=== PATIENT | male | born 1975 | race Hispanic/Latino ===

== ENCOUNTER 2017-09-14 20:45 | Emergency (ER) | payer OTHER ==
[~2017-09-14 20:45] MED LIST: ASPI-1197 PO
== END 2017-09-14 22:04 | disposition home or self-care (01) ==
LOC: EDH 20:45
DX: S90.111A Contusion of right great toe without damage to nail, initial encounter (principal); E11.9 Type 2 diabetes mellitus without complications; I10 Essential (primary) hypertension; Z79.4 Long term (current) use of insulin; W20.8XXA Other cause of strike by thrown, projected or falling object, initial encounter; Y93.89 Activity, other specified; Y92.89 Other specified places as the place of occurrence of the external cause; Y99.8 Other external cause status
CPT/HCPCS: 73660

== ENCOUNTER 2017-12-02 16:16 | Emergency (ER) | payer OTHER ==
[2017-12-02] MEDS ORDERED: ASPIRIN 325 MG TABLET ONE (16:34)
[2017-12-02 16:38] LABS: BASOPHILS % (AUTO) 0.6 % (0.0-5.0); EOSINOPHILS % (AUTO) 0.8 % (0.0-8.0); HEMATOCRIT 44.6 % (42-54); LYMPHOCYTES % (AUTO) 31.6 % (21.0-51.0); MEAN CORPUSCULAR HGB CONC 35.6 g/dL (32.0-36.0); MEAN CORPUSCULAR VOLUME 89.7 fL (79-99); MONOCYTES % (AUTO) 5.2 % (3.0-13.0); NEUTROPHILS % (AUTO) 61.8 % (40.0-77.0); PLATELET COUNT (AUTO) 280 K/uL (130-400); RED BLOOD CELL COUNT(AUTO) 4.97 MIL/uL (4.50-6.20); RED CELL DISTRIBUTION WIDTH 12.8 % (11.0-15.5)
[2017-12-02 17:01] LABS: AMPHET/METH SCREEN,URINE NEGATIVE (NEGATIVE); BARBITURATE SCREEN, URINE NEGATIVE (NEGATIVE); BENZODIAZEPINES SCREEN,URINE NEGATIVE (NEGATIVE); CANNABINOID SCREEN,URINE NEGATIVE (NEGATIVE); COCAINE SCREEN,URINE NEGATIVE (NEGATIVE); OPIATE SCREEN,URINE NEGATIVE (NEGATIVE); PHENCYCLIDINE SCREEN,URINE NEGATIVE (NEGATIVE)
[2017-12-02 17:06] LABS: INR 0.93 (0.85-1.15); PARTIAL THROMBOPLASTIN TIME 25.6 SEC (26.3-35.5); PROTHROMBIN TIME 9.8 SEC (9.6-11.6)
[2017-12-02 17:21] LABS: B-TYPE NATRIURETIC PEPTIDE < 5 pg/mL (0-100)
[2017-12-02 17:23] LABS: ALBUMIN 3.5 g/dL (3.5-5.0); BILIRUBIN,TOTAL 0.6 mg/dL (0.2-1.0); CREATININE 1.2 mg/dL (0.5-1.5); POTASSIUM 4.1 mmol/L (3.5-5.1); TOTAL PROTEIN, SERUM 7.8 g/dL (6.0-8.3)
[2017-12-02] MEDS ORDERED: INSULIN HUMULIN R 100 UNIT/ML 3ML ONE (18:02)
== END 2017-12-02 19:26 | disposition home or self-care (01) ==
LOC: EDH 16:16
DX: R07.89 Other chest pain (principal); E11.65 Type 2 diabetes mellitus with hyperglycemia; F20.9 Schizophrenia, unspecified; I10 Essential (primary) hypertension; Z79.4 Long term (current) use of insulin
CPT/HCPCS: 36415; 71045; 80053; 80305; 82550; 82948; 83880; 84484; 85025; 85610; 85730; 93005; 94761; 96361; 96374; 99285; J1815

== ENCOUNTER 2018-04-30 22:24 | Emergency (ER) | payer OTHER ==
[2018-04-30] MEDS ORDERED: CEFTRIAXONE SODIUM 1 GM ONE (23:02)
[2018-04-30] MEDS ORDERED: LIDOCAINE HCL MPF 1% 5ML VIAL ONE (23:02)
[2018-04-30] MEDS ORDERED: TETANUS/DIPHTHERIA TOXOID [ADULT] 0.5 ML VIAL IM ONE (23:03)
== END 2018-04-30 23:34 | disposition home or self-care (01) ==
LOC: EDH 22:24
DX: S61.236A Puncture wound without foreign body of right little finger without damage to nail, initial encounter (principal); I10 Essential (primary) hypertension; E11.9 Type 2 diabetes mellitus without complications; F31.9 Bipolar disorder, unspecified; F20.9 Schizophrenia, unspecified; Z79.4 Long term (current) use of insulin; W45.8XXA Other foreign body or object entering through skin, initial encounter; Y93.89 Activity, other specified; Y92.89 Other specified places as the place of occurrence of the external cause; Y99.8 Other external cause status
CPT/HCPCS: 73140; 90471; 90714; 99284; J0696; J3490

== ENCOUNTER 2018-08-30 21:24 | Emergency (ER) | payer OTHER | END 2018-08-30 23:23 | disposition home or self-care (01) | LOC: EDH 21:24 | DX: S40.021A Contusion of right upper arm, initial encounter (principal); E11.9 Type 2 diabetes mellitus without complications; I10 Essential (primary) hypertension; F20.9 Schizophrenia, unspecified; F31.9 Bipolar disorder, unspecified; W55.12XA Struck by horse, initial encounter; Y93.89 Activity, other specified; Y92.89 Other specified places as the place of occurrence of the external cause; Y99.8 Other external cause status | CPT/HCPCS: 99282 ==

== ENCOUNTER 2018-09-26 08:12 | Emergency (ER) | payer OTHER ==
[2018-09-26] MEDS ORDERED: CYCLOBENZAPRINE HCL 10 MG TABLET ONE (08:56)
[2018-09-26] MEDS ORDERED: KETOROLAC TROMETHAMINE 60 MG/2 ML VIAL ONE (08:56)
== END 2018-09-26 09:51 | disposition home or self-care (01) ==
LOC: EDH 08:12
DX: M54.30 Sciatica, unspecified side (principal); F31.9 Bipolar disorder, unspecified; E11.9 Type 2 diabetes mellitus without complications; I10 Essential (primary) hypertension; F20.9 Schizophrenia, unspecified; Z79.4 Long term (current) use of insulin; Z90.49 Acquired absence of other specified parts of digestive tract; Z87.891 Personal history of nicotine dependence
CPT/HCPCS: 72100; 96372; 99283; J1885

== ENCOUNTER 2019-03-08 22:07 | Emergency (ER) | payer OTHER ==
[2019-03-08 22:52] LABS: BASOPHILS % (AUTO) 0.9 % (0.0-5.0); EOSINOPHILS % (AUTO) 3.4 % (0.0-8.0); HEMATOCRIT 44.7 % (42-54); LYMPHOCYTES % (AUTO) 32.2 % (21.0-51.0); MEAN CORPUSCULAR HEMOGLOBIN 31.6 pg (27.0-33.0); MEAN CORPUSCULAR HGB CONC 35.4 g/dL (32.0-36.0); MEAN CORPUSCULAR VOLUME 89.4 fL (79-99); MONOCYTES % (AUTO) 6.8 % (3.0-13.0); NEUTROPHILS % (AUTO) 56.7 % (40.0-77.0); NUCLEATED RED BLOOD CELLS 0.1 % (0.0-0.19); PLATELET COUNT (AUTO) 268 K/uL (130-400); RED CELL DISTRIBUTION WIDTH 12.8 % (11.0-15.5); WHITE BLOOD COUNT (AUTO) 6.6 K/uL (4.8-10.8)
[2019-03-08 23:04] LABS: APPEARANCE,URINE Clear (CLEAR); BILIRUBIN,URINE Negative (NEGATIVE); COLOR,URINE Yellow (YELLOW); GLUCOSE, URINE (UA) >=1000 mg/dL (NEGATIVE); KETONES,URINE Negative (NEGATIVE); LEUKOCYTE ESTERASE ,URINE Negative (NEGATIVE); NITRATE,URINE Negative (NEGATIVE); OCCULT BLOOD,URINE Negative (NEGATIVE); PROTEIN,URINE Negative (NEGATIVE)
[2019-03-08 23:09] LABS: ALBUMIN 3.4 g/dL (3.5-5.0); BILIRUBIN,TOTAL 0.9 mg/dL (0.2-1.0); CREATININE 1.1 mg/dL (0.5-1.5); POTASSIUM 4.1 mmol/L (3.5-5.1); TOTAL PROTEIN, SERUM 7.7 g/dL (6.0-8.3)
[2019-03-08] MEDS ORDERED: SODIUM CHLORIDE 0.9% 1000ML 1,000 ML IV ONE (23:12)
[2019-03-08] MEDS ORDERED: KETOROLAC TROMETHAMINE 30MG/ML ONE (23:12)
[2019-03-09] MEDS ORDERED: LIDOCAINE 5% TOPICAL PATCH TP ONE (00:09)
[2019-03-09] MEDS ORDERED: ORPHENADRINE CITRATE 30 MG/ML ML ONE (00:09)
[2019-03-09] MEDS ORDERED: INSULIN HUMULIN R 100 UNIT/ML 3ML ONE (00:10)
[2019-03-09] MEDS ORDERED: SODIUM CHLORIDE 0.9% 1000ML 1,000 ML IV ONE (00:11)
== END 2019-03-09 00:48 | disposition home or self-care (01) ==
LOC: EDH 22:07
DX: S39.012A Strain of muscle, fascia and tendon of lower back, initial encounter (principal); M62.838 Other muscle spasm; R10.32 Left lower quadrant pain; E11.9 Type 2 diabetes mellitus without complications; I10 Essential (primary) hypertension; F20.9 Schizophrenia, unspecified; F31.9 Bipolar disorder, unspecified; Z90.49 Acquired absence of other specified parts of digestive tract; X58.XXXA Exposure to other specified factors, initial encounter; Y93.89 Activity, other specified; Y92.89 Other specified places as the place of occurrence of the external cause; Y99.8 Other external cause status
CPT/HCPCS: 36415; 74176; 80053; 81003; 83690; 85025; 96374; 96375; 99285; J1815; J1885; J2360; J7030 ×2

== ENCOUNTER → 2023-04-17 | Outpatient (CLI) | payer OTHER ==
[~2023-04-17] MED LIST changes: -ASPI-1197 PO; +CANA300T PO; +INSU100I22 SQ; +LIDOCAINE HCL 4% LTA SOL 4 ML VIAL TP ONE; +METF-444 PO; +ROSU20TA73 PO
== END | disposition home or self-care (01) ==
LOC: WHH 09:47
PROVIDERS: ATTEND Nurse Practitioner Family
DX: S91.202A Unspecified open wound of left great toe with damage to nail, initial encounter (principal); S92.402A Displaced unspecified fracture of left great toe, initial encounter for closed fracture; S97.112A Crushing injury of left great toe, initial encounter; E11.621 Type 2 diabetes mellitus with foot ulcer; L97.522 Non-pressure chronic ulcer of other part of left foot with fat layer exposed; E78.5 Hyperlipidemia, unspecified; I10 Essential (primary) hypertension; F31.9 Bipolar disorder, unspecified; Z79.84 Long term (current) use of oral hypoglycemic drugs; Z79.82 Long term (current) use of aspirin; Z79.899 Other long term (current) drug therapy; X58.XXXA Exposure to other specified factors, initial encounter; Y93.89 Activity, other specified; Y92.89 Other specified places as the place of occurrence of the external cause; Y99.8 Other external cause status
CPT/HCPCS: 11042; A6248; A4450

== ENCOUNTER 2023-06-17 19:36 | Emergency (ER) | payer OTHER ==
[~2023-06-17] VITALS: Ht 175.3 cm; Wt 79.4 kg
[~2023-06-17 19:36] MED LIST changes: -LIDOCAINE HCL 4% LTA SOL 4 ML VIAL TP ONE
[2023-06-17] MEDS ORDERED: KETOROLAC 15MG/ML VIAL (15MG/ML) IV ONE (21:30)
[2023-06-17] MEDS ORDERED: ONDANSETRON 4MG INJ IVP ONE (21:30)
[2023-06-17] MEDS ORDERED: ACETAMINOPHEN 325 MG TAB PO ONE (21:30)
[2023-06-17] MEDS ORDERED: 0.9%NACL 1000ML 1,000 ML IV ONE (21:30)
[2023-06-17 23:16] LABS: APPEARANCE,URINE CLEAR (CLEAR); BILIRUBIN,URINE NEGATIVE (NEGATIVE); COLOR,URINE YELLOW (YELLOW); GLUCOSE, URINE (UA) >=1000 mg/dL (NEGATIVE); KETONES,URINE NEGATIVE (NEGATIVE); LEUKOCYTE ESTERASE ,URINE NEGATIVE Leu/uL (NEGATIVE); NITRATE,URINE NEGATIVE (NEGATIVE); OCCULT BLOOD,URINE SMALL (NEGATIVE); PH,URINE 5.5 (5.0-8.0); PROTEIN,URINE 200 mg/dL (NEGATIVE); UROBILINOGEN,URINE 0.2 mg/dL (0.2-1.0)
[2023-06-17 23:19] LABS: ADD UA MICROSCOPIC YES
[2023-06-17 23:24] LABS: BASOPHILS # (AUTO) 0.04 K/uL (0.00-0.20); BASOPHILS % (AUTO) 0.6 % (0.0-5.0); EOSINOPHILS # (AUTO) 0.05 K/uL (0.00-0.70); EOSINOPHILS % (AUTO) 0.7 % (0.0-8.0); HEMATOCRIT 38.6 % (42-54); IMMATURE GRANULOCYTE ABSOLUTE 0.02 K/uL (0-1); LYMPHOCYTES % (AUTO) 27.2 % (21.0-51.0); MEAN CORPUSCULAR HEMOGLOBIN 30.2 pg (27.0-33.0); MEAN CORPUSCULAR HGB CONC 35.8 g/dL (32.0-36.0); MEAN CORPUSCULAR VOLUME 84.5 fL (79-99); MONOCYTES # (AUTO) 0.5 K/uL (0.1-1.0); MONOCYTES % (AUTO) 7.2 % (3.0-13.0); NEUTROPHILS # (AUTO) 4.6 K/uL (1.8-7.7); PLATELET COUNT (AUTO) 263 K/uL (130-400); RED BLOOD CELL COUNT(AUTO) 4.57 MIL/uL (4.50-6.20); RED CELL DISTRIBUTION WIDTH 12.3 % (11.0-15.5); WHITE BLOOD COUNT (AUTO) 7.2 K/uL (4.8-10.8)
[2023-06-17 23:29] LABS: MUCUS,URINE RARE LPF (None Seen); OTHER CASTS, URINE 6 /LPF (None Seen)
[2023-06-17 23:39] LABS: ALBUMIN 3.2 g/dL (3.5-5.0); CREATININE 1.5 mg/dL (0.5-1.5); POTASSIUM 3.9 mmol/L (3.5-5.1)
[2023-06-17 23:43] LABS: BILIRUBIN,TOTAL 0.9 mg/dL (0.2-1.0); TOTAL PROTEIN, SERUM 8.2 g/dL (6.0-8.3)
[2023-06-17] MEDS ORDERED: IOHEXOL 350 MG/ML 100ML INFUS..BTL IV ONE (23:48)
[2023-06-17 23:58] LABS: RAPID GROUP A STREP negative (NEGATIVE)
[2023-06-18] MEDS ORDERED: INSULIN HUMULIN R 100 UNIT/ML 3ML IV ONE
[2023-06-18 00:07] LABS: COVID19 (SARS ANTIGEN RAPID) PRESUMPTIVE NEGATIVE (NEGATIVE); INFLUENZA TYPE A Negative For Type A (NEGATIVE); INFLUENZA TYPE B Negative For Type B (NEGATIVE)
[2023-06-18] MEDS ORDERED: PANT40TA54 PO (01:15)
[2023-06-18] MEDS ORDERED: AMOX1TAB16 PO (01:15)
[2023-06-18] MEDS ORDERED: ONDA-104 PO (01:15)
[2023-06-18] MEDS ORDERED: ACET-66 PO (01:15)
[2023-06-18] MEDS ORDERED: DICY20TA2 PO (01:15)
[2023-06-18 01:38] VITALS: BP 127/84; PULSE 95; RESP 18; O2SAT 99
== END 2023-06-18 01:39 | disposition home or self-care (01) ==
LOC: EDH 19:36
DX: K52.9 Noninfective gastroenteritis and colitis, unspecified (principal); E86.0 Dehydration; E11.65 Type 2 diabetes mellitus with hyperglycemia; F20.9 Schizophrenia, unspecified; Z20.822 Contact with and (suspected) exposure to COVID-19
CPT/HCPCS: 99284; 74177; 96374; 96375 ×2; 87426; 80053; 83690; 85025; 87088; 87880; 87804 ×2; 82948; 81001; 36415; J7030; J2405; J1885; Q9967; J1815

== ENCOUNTER 2023-09-25 07:44 | Emergency (ER) | payer OTHER ==
[~2023-09-25] VITALS: Ht 170.2 cm; Wt 83.0 kg
[~2023-09-25 07:44] MED LIST changes: +ACET-66 PO; +AMOX1TAB16 PO; +DICY20TA2 PO; +ONDA-104 PO; +PANT40TA54 PO
[2023-09-25 07:46] VITALS: BP 125/75; PULSE 96; RESP 14; O2SAT 99
[2023-09-25] MEDS: HYDROCODONE/ACETAMINOPHEN 5/325 MG TAB PO ONE (08:28)
[2023-09-25] MEDS ORDERED: ACET-2079 PO (12:07)
== END 2023-09-25 12:21 | disposition home or self-care (01) ==
LOC: EDH 07:44
DX: S90.32XA Contusion of left foot, initial encounter (principal); E11.9 Type 2 diabetes mellitus without complications; F20.9 Schizophrenia, unspecified; Z79.899 Other long term (current) drug therapy; Z90.49 Acquired absence of other specified parts of digestive tract; F32.A Depression, unspecified; W55.12XA Struck by horse, initial encounter; Y93.89 Activity, other specified; Y92.89 Other specified places as the place of occurrence of the external cause; Y99.8 Other external cause status
CPT/HCPCS: 73630; 73700

== ENCOUNTER 2024-01-28 19:53 | Emergency (ER) | payer MEDICARE, OTHER ==
[~2024-01-28] VITALS: Ht 172.7 cm; Wt 83.5 kg
[~2024-01-28 19:53] MED LIST changes: +ACET-2079 PO
[2024-01-28 20:29] LABS: BASOPHILS # (AUTO) 0.02 K/uL (0.00-0.20); BASOPHILS % (AUTO) 0.3 % (0.0-5.0); EOSINOPHILS # (AUTO) 0.07 K/uL (0.00-0.70); EOSINOPHILS % (AUTO) 1.2 % (0.0-8.0); HEMATOCRIT 35.8 % (42-54); IMMATURE GRANULOCYTE ABSOLUTE 0.01 K/uL (0-1); LYMPHOCYTES # (AUTO) 1.9 K/uL (1.0-4.8); LYMPHOCYTES % (AUTO) 31.4 % (21.0-51.0); MEAN CORPUSCULAR HEMOGLOBIN 30.6 pg (27.0-33.0); MEAN CORPUSCULAR HGB CONC 36.6 g/dL (32.0-36.0); MEAN CORPUSCULAR VOLUME 83.6 fL (79-99); MONOCYTES # (AUTO) 0.5 K/uL (0.1-1.0); NEUTROPHILS # (AUTO) 3.5 K/uL (1.8-7.7); NEUTROPHILS % (AUTO) 58.9 % (40.0-77.0); PLATELET COUNT (AUTO) 240 K/uL (130-400); RED BLOOD CELL COUNT(AUTO) 4.28 MIL/uL (4.50-6.20); RED CELL DISTRIBUTION WIDTH 12.4 % (11.0-15.5); WHITE BLOOD COUNT (AUTO) 5.9 K/uL (4.8-10.8)
[2024-01-28 20:41] LABS: CREATININE 1.1 mg/dL (0.5-1.3)
[2024-01-28 20:46] LABS: ALBUMIN 3.1 g/dL (3.5-5.0); MAGNESIUM 2.2 mg/dL (1.80-2.40); TOTAL PROTEIN, SERUM 7.6 g/dL (6.0-8.3)
[2024-01-28 21:14] VITALS: BP 126/84; PULSE 88; RESP 18; O2SAT 99
== END 2024-01-28 21:15 | disposition home or self-care (01) ==
LOC: EDH 19:53
DX: R07.89 Other chest pain (principal); F41.9 Anxiety disorder, unspecified; E11.9 Type 2 diabetes mellitus without complications; F20.9 Schizophrenia, unspecified; F31.9 Bipolar disorder, unspecified
CPT/HCPCS: 36415; 80053; 83735; 84484; 85025; 93005

== ENCOUNTER 2024-03-24 21:45 | Inpatient (IN) | payer MEDICARE, OTHER ==
[~2024-03-24] VITALS: Ht 175.3 cm; Wt 81.2 kg
[2024-03-24 22:29] LABS: BASOPHILS # (AUTO) 0.02 K/uL (0.00-0.20); BASOPHILS % (AUTO) 0.4 % (0.0-5.0); EOSINOPHILS # (AUTO) 0.08 K/uL (0.00-0.70); EOSINOPHILS % (AUTO) 1.6 % (0.0-8.0); HEMATOCRIT 38.4 % (42-54); IMMATURE GRANULOCYTE ABSOLUTE 0.02 K/uL (0-1); LYMPHOCYTES # (AUTO) 1.7 K/uL (1.0-4.8); LYMPHOCYTES % (AUTO) 33.5 % (21.0-51.0); MEAN CORPUSCULAR HEMOGLOBIN 32.4 pg (27.0-33.0); MEAN CORPUSCULAR HGB CONC 36.5 g/dL (32.0-36.0); MEAN CORPUSCULAR VOLUME 88.9 fL (79-99); MONOCYTES # (AUTO) 0.4 K/uL (0.1-1.0); MONOCYTES % (AUTO) 7.8 % (3.0-13.0); NEUTROPHILS # (AUTO) 2.8 K/uL (1.8-7.7); NEUTROPHILS % (AUTO) 56.3 % (40.0-77.0); PLATELET COUNT (AUTO) 252 K/uL (130-400); RED BLOOD CELL COUNT(AUTO) 4.32 MIL/uL (4.50-6.20); RED CELL DISTRIBUTION WIDTH 12.1 % (11.0-15.5)
[2024-03-24 22:52] LABS: CREATININE 1.5 mg/dL (0.5-1.3); POTASSIUM 4.5 mmol/L (3.5-5.1)
[2024-03-24 22:55] LABS: APPEARANCE,URINE CLEAR (CLEAR); BACTERIA,URINE RARE /HPF (None Seen); BILIRUBIN,URINE NEGATIVE (NEGATIVE); COLOR,URINE COLORLESS (YELLOW); GLUCOSE, URINE (UA) >=1000 mg/dL (NEGATIVE); KETONES,URINE NEGATIVE (NEGATIVE); LEUKOCYTE ESTERASE ,URINE NEGATIVE Leu/uL (NEGATIVE); NITRATE,URINE NEGATIVE (NEGATIVE); OCCULT BLOOD,URINE SMALL (NEGATIVE); PROTEIN,URINE NEGATIVE (NEGATIVE); UROBILINOGEN,URINE 0.2 mg/dL (0.2-1.0); WBC,URINE 0-1 /HPF (0-1)
[2024-03-24] MEDS: 0.9%NACL 1000ML 1,000 ML IV ONE (23:17)
[2024-03-24] MEDS: KETOROLAC 15MG/ML VIAL (15MG/ML) IV ONE (23:17)
[2024-03-24] MEDS ORDERED: POTASSIUM CHLORIDE 10MEQ/100ML 100 ML IV PRN (23:30)
[2024-03-24] MEDS ORDERED: MAGNESIUM 2GM PREMIX 50ML 50 ML IV SCH (23:30)
[2024-03-25] VITALS (20 sets, daily range): BP systolic 109–144; BP diastolic 62–99; PULSE 64–88; RESP 12–30; O2SAT 97
[2024-03-25] MEDS: MANNITOL 20% 500 ML IV.SOLN IV SCH (00:01)
[2024-03-25] MEDS: INSULIN REGULAR, HUMAN 3ML 100 UNIT in 0.9%NACL 100ML 100 ML IV SCH (00:08)
[2024-03-25] MEDS: D5W-1/2 NS/20MEQ KCL 1,000 ML IV SCH (00:20)
[2024-03-25] MEDS: 0.9%NACL 1000ML 1,000 ML IV SCH (01:20)
[2024-03-25] MEDS ORDERED: acetaMINOPHEN 650 MG SUPPOSITORY RC PRN (01:30)
[2024-03-25] MEDS ORDERED: TEMAZEPAM 15 MG CAPSULE PO PRN (01:30)
[2024-03-25] MEDS ORDERED: DOCUSATE SODIUM 100 MG CAP PO PRN (01:30)
[2024-03-25] MEDS ORDERED: hydrALAZine 20MG/ML VIAL IV PRN (01:30)
[2024-03-25] MEDS ORDERED: LACTULOSE 20 GM/30 ML UDCUP PO PRN (01:30)
[2024-03-25 01:46] LABS: RAPID GROUP A STREP negative (NEGATIVE)
[2024-03-25 01:56] LABS: INFLUENZA TYPE A Negative For Type A (NEGATIVE); INFLUENZA TYPE B Negative For Type B (NEGATIVE)
[2024-03-25] MEDS ORDERED: 0.9%NACL 50ML IV SCH (02:00)
[2024-03-25 02:12] LABS: SARS-CoV-2, RNA, NAAT NEGATIVE SARS CoV-2 (NEGATIVE)
[2024-03-25] MEDS: ZOSYN 3.375GM +NS 50ML IVPB SCH (02:32)
[2024-03-25] MEDS: INSULIN GLARGINE 100 UNITS/ML 10 ML VIAL SQ ONE (02:33)
[2024-03-25 02:35] LABS: ABG BASE EXCESS -1.8 mmol/L (-2.0-3.0); ABG HCO3 23.3 mmol/L (21.0-28.0); ABG OXYGEN SATURATION 96.5 % (95.0-99.0); ABG PCO2 41 mmHg (35-48); ABG PH 7.374 (7.35-7.450); CARBON MONOXIDE 0.4; DEVICE COMMENT LEFT RADIAL; HHb 3.5; PO2, ARTERIAL BG 90.4 mmHg (83.0-108.0); VENT MODE, BG ROOM AIR (ROOM AIR)
[2024-03-25] MEDS: ENOXAPARIN SODIUM 40 MG/0.4 ML SYRINGE SQ SCH (08:06)
[2024-03-25] MEDS: FAMOTIDINE 20MG TAB PO SCH (08:06)
[2024-03-25] MEDS: HYDROMORPHONE 0.5 MG SYG (0.5MG/0.5ML) IVP ONE (08:38)
[2024-03-25] MEDS: INSULIN GLARGINE 100 UNITS/ML 10 ML VIAL SQ SCH (09:41)
[2024-03-25] MEDS ORDERED: IOHEXOL-350 75 ML VIAL IV ONE (10:02)
[2024-03-25] MEDS ORDERED: LISI10TA24 PO (10:37)
[2024-03-25] MEDS ORDERED: INSU100I13 SQ (10:37)
[2024-03-25] MEDS ORDERED: FENO145T26 PO (10:37)
[2024-03-25] MEDS ORDERED: FLUO40CA49 PO (10:37)
[2024-03-25] MEDS: ONDANSETRON 4MG INJ IVP PRN (10:44)
[2024-03-25] MEDS: DEXTROSE 5 % AND 0.9 % NACL 1,000 ML IV SCH (11:11)
[2024-03-25] MEDS ORDERED: DEXTROSE 5%-LACTATED RINGERS 1,000 ML IV SCH (11:30)
[2024-03-25 11:48] LABS: MAGNESIUM 1.8 mg/dL (1.80-2.40); POTASSIUM 3.8 mmol/L (3.5-5.1)
[2024-03-25] MEDS: INSULIN HUMULIN R 100 UNIT/ML 3ML SQ SCH (12:20)
[2024-03-25] MEDS: PROMETHAZINE HCL 25 MG/ML 1ML AMPULE IM ONE (19:16)
[2024-03-25] MEDS: MAGNESIUM OXIDE 400 MG TABLET PO SCH (21:00)
[2024-03-25] MEDS: ATORVASTATIN 40 MG TABLET PO SCH (21:00)
[2024-03-25] MEDS ORDERED: INSULIN GLARGINE 100 UNITS/ML 10 ML VIAL SQ SCH ×2 (21:00)
[2024-03-26] VITALS (7 sets, daily range): BP systolic 124–157; BP diastolic 71–99; PULSE 76–84; RESP 18; O2SAT 96–97
[2024-03-26 03:59] LABS: BASOPHILS # (AUTO) 0.02 K/uL (0.00-0.20); BASOPHILS % (AUTO) 0.3 % (0.0-5.0); EOSINOPHILS # (AUTO) 0.06 K/uL (0.00-0.70); HEMATOCRIT 34.4 % (42-54); IMMATURE GRANULOCYTE ABSOLUTE 0.02 K/uL (0-1); LYMPHOCYTES # (AUTO) 1.5 K/uL (1.0-4.8); LYMPHOCYTES % (AUTO) 23.6 % (21.0-51.0); MEAN CORPUSCULAR HEMOGLOBIN 30.9 pg (27.0-33.0); MEAN CORPUSCULAR HGB CONC 35.2 g/dL (32.0-36.0); MEAN CORPUSCULAR VOLUME 87.8 fL (79-99); MONOCYTES # (AUTO) 0.4 K/uL (0.1-1.0); NEUTROPHILS # (AUTO) 4.2 K/uL (1.8-7.7); NEUTROPHILS % (AUTO) 68.8 % (40.0-77.0); PLATELET COUNT (AUTO) 204 K/uL (130-400); RED BLOOD CELL COUNT(AUTO) 3.92 MIL/uL (4.50-6.20); RED CELL DISTRIBUTION WIDTH 12.5 % (11.0-15.5); WHITE BLOOD COUNT (AUTO) 6.1 K/uL (4.8-10.8)
[2024-03-26 04:27] LABS: ALBUMIN 2.4 g/dL (3.5-5.0); BILIRUBIN,TOTAL 0.9 mg/dL (0.2-1.0); MAGNESIUM 1.7 mg/dL (1.80-2.40); POTASSIUM 3.7 mmol/L (3.5-5.1)
[2024-03-26] MEDS ORDERED: MAGNESIUM 2GM PREMIX 50ML 50 ML IV PRN (05:30)
[2024-03-26] MEDS ORDERED: POTASSIUM CHLORIDE 10% ELIXIR 20 MEQ/15 ML UDCUP PO PRN (05:30)
[2024-03-26] MEDS ORDERED: POTASSIUM CHLORIDE 10MEQ/100ML 100 ML IV PRN (05:30)
[2024-03-26] MEDS: FENOFIBRATE NANOCRYSTALLIZED 145 MG TAB PO SCH (08:31)
[2024-03-26] MEDS: LISINOPRIL 10 MG TABLET PO SCH (08:31)
[2024-03-26] MEDS: FLUOXETINE HCL 20 MG CAPSULE PO SCH (08:31)
[2024-03-26] MEDS: KCL 20 MEQ ERTAB PO PRN (09:11)
[2024-03-26] MEDS ORDERED: MAGNESIUM 2GM PREMIX 50ML 50 ML IV SCH (10:00)
[2024-03-26] MEDS: PROMETHAZINE HCL 25 MG/ML 1ML AMPULE IM ONE (12:01)
[2024-03-26] MEDS: MAGNESIUM HYDROXIDE 30 ML/UDCUP PO ONE (12:20)
[2024-03-26] MEDS: LACTULOSE 20 GM/30 ML UDCUP PO ONE (12:20)
[2024-03-26] MEDS: [UNRECOGNIZED DRUG - OTHER] PO ONE (12:20)
[2024-03-26] MEDS: LACTATED RINGERS 1000ML 1,000 ML IV SCH (12:21)
[2024-03-26] MEDS: MAGNESIUM CITRATE 296 ML SOLUTION PO ONE (12:44)
[2024-03-26] MEDS: PEG 3350/NA SULF,BICARB,CL/KCL 4000 ML SOLN PO STA (16:33)
[2024-03-26] MEDS: acetaMINOPHEN 325 MG TAB PO PRN (23:42)
[2024-03-27] VITALS (26 sets, daily range): BP systolic 119–153; BP diastolic 69–99; PULSE 64–82; RESP 16–20; O2SAT 96–98
[2024-03-27 05:10] LABS: HEMATOCRIT 35.6 % (42-54); MEAN CORPUSCULAR HEMOGLOBIN 31.1 pg (27.0-33.0); MEAN CORPUSCULAR HGB CONC 34.3 g/dL (32.0-36.0); MEAN CORPUSCULAR VOLUME 90.8 fL (79-99); RED BLOOD CELL COUNT(AUTO) 3.92 MIL/uL (4.50-6.20); RED CELL DISTRIBUTION WIDTH 12.8 % (11.0-15.5); WHITE BLOOD COUNT (AUTO) 5.4 K/uL (4.8-10.8)
[2024-03-27 05:35] LABS: ALBUMIN 2.3 g/dL (3.5-5.0); BILIRUBIN,TOTAL 0.9 mg/dL (0.2-1.0); MAGNESIUM 2.2 mg/dL (1.80-2.40); POTASSIUM 3.3 mmol/L (3.5-5.1)
[2024-03-27] MEDS ORDERED: PROPOFOL 10 MG/ML 20ML VIAL IV ONE (11:32)
[2024-03-27] MEDS ORDERED: GLYCOPYRROLATE 0.2 MG/ML 5 ML VIAL ONE (11:32)
[2024-03-27] MEDS ORDERED: KETAMINE 50MG/ML SYRINGE 50 MG/ML DISP.SYRIN ONE (11:32)
[2024-03-27] MEDS ORDERED: LIDOCAINE PF 100MG/5ML (2%) SYRINGE 5ML ONE (11:33)
[2024-03-27] MEDS: KCL 20 MEQ ERTAB PO ONE (13:15)
[2024-03-28 00:14] VITALS: BP_SYST 135; BP_SYST 154; BP_DIAS 67; BP_DIAS 85; PULSE 73; PULSE 79; RESP 19
[2024-03-28 04:02] VITALS: BP 108/72; PULSE 76; RESP 20
[2024-03-28 05:43] LABS: HEMATOCRIT 35.6 % (42-54); MEAN CORPUSCULAR HEMOGLOBIN 31.1 pg (27.0-33.0); MEAN CORPUSCULAR HGB CONC 34.6 g/dL (32.0-36.0); MEAN CORPUSCULAR VOLUME 90.1 fL (79-99); RED BLOOD CELL COUNT(AUTO) 3.95 MIL/uL (4.50-6.20); RED CELL DISTRIBUTION WIDTH 12.5 % (11.0-15.5); WHITE BLOOD COUNT (AUTO) 5.2 K/uL (4.8-10.8)
[2024-03-28 06:06] LABS: ALBUMIN 2.4 g/dL (3.5-5.0); BILIRUBIN,TOTAL 0.9 mg/dL (0.2-1.0); CREATININE 1.1 mg/dL (0.5-1.3); POTASSIUM 3.6 mmol/L (3.5-5.1); TOTAL PROTEIN, SERUM 6.1 g/dL (6.0-8.3)
[2024-03-28 07:52] VITALS: BP 129/87; PULSE 79; RESP 20
[2024-03-28 11:40] VITALS: BP 139/84; PULSE 66; RESP 20
[2024-03-28] MEDS: KCL 20 MEQ ERTAB PO ONE (11:56)
[2024-03-28] MEDS ORDERED: PANT40TA55 PO (14:34)
== END 2024-03-28 15:50 | disposition home or self-care (01) | DRG 871 ==
LOC: EDH 21:45 → EDHIP 23:53 → 2CH 03-25 01:14 → 3DH 03-26 23:38
PROVIDERS: ADMIT Internal Medicine; ATTEND Internal Medicine
PROC: 0DB58ZX Excision of Esophagus, Via Natural or Artificial Opening Endoscopic, Diagnostic (ICD-10-PCS; principal; 2024-03-27)
PROC: 0DJD8ZZ Inspection of Lower Intestinal Tract, Via Natural or Artificial Opening Endoscopic (ICD-10-PCS; 2024-03-27)
DX: A41.9 Sepsis, unspecified organism (principal); E11.00 Type 2 diabetes mellitus with hyperosmolarity without nonketotic hyperglycemic-hyperosmolar coma (NKHHC); E87.20 Acidosis, unspecified; N17.9 Acute kidney failure, unspecified; E87.1 Hypo-osmolality and hyponatremia; F31.9 Bipolar disorder, unspecified; F41.9 Anxiety disorder, unspecified; N18.9 Chronic kidney disease, unspecified; E11.22 Type 2 diabetes mellitus with diabetic chronic kidney disease; I12.9 Hypertensive chronic kidney disease with stage 1 through stage 4 chronic kidney disease, or unspecified chronic kidney disease; E87.8 Other disorders of electrolyte and fluid balance, not elsewhere classified; D64.9 Anemia, unspecified; Z91.148 Patient's other noncompliance with medication regimen for other reason; F20.9 Schizophrenia, unspecified; E78.5 Hyperlipidemia, unspecified; K22.70 Barrett's esophagus without dysplasia; K59.00 Constipation, unspecified; K57.30 Diverticulosis of large intestine without perforation or abscess without bleeding; N28.1 Cyst of kidney, acquired; K22.89 Other specified disease of esophagus; K31.89 Other diseases of stomach and duodenum; K44.9 Diaphragmatic hernia without obstruction or gangrene; Z51.5 Encounter for palliative care; Z79.4 Long term (current) use of insulin; Z90.49 Acquired absence of other specified parts of digestive tract
CPT/HCPCS: 36415; 36600; 43239; 45378; 74176; 74177; 76770; 80048; 80053; 81001; 82010; 82435; 82803; 82947; 82948; 83605; 83690; 83735; 83930; 84100; 84132; 84145; 84295; 84443; 85018; 85025; 85027; 87635; 87804; 87880; 96361; 96374; A4357; G0378; J1170; J1650; J1815; J1885; J2001; J2405; J2543; J2550; J2704; J3475; J3480; J3490; J7030; Q9967; A4215; A4216; A4222; A4223; A4620; A4657

== ENCOUNTER → 2024-07-13 | Outpatient (CLI) | payer OTHER ==
[~2024-07-13] MED LIST changes: -ACET-2079 PO; -ACET-66 PO; -AMOX1TAB16 PO; -CANA300T PO; -DICY20TA2 PO; +FENO145T26 PO; +FLUO40CA49 PO; +INSU100I13 SQ; -INSU100I22 SQ; +LISI10TA24 PO; -METF-444 PO; -ONDA-104 PO; -PANT40TA54 PO; +PANT40TA55 PO; -ROSU20TA73 PO; +ROSU20TA98 PO
--- NOTE | 2024-07-13 09:12 | HMCIMG ---
US ABDOMINAL COMPLETE HISTORY: Abdominal pain COMPARISON: None TECHNIQUE: Multiple transverse and longitudinal ultrasound images of the abdomen were obtained. FINDINGS: Abdominal aorta and inferior vena cava are unremarkable. The visualized portion of the pancreas is within normal limits. Liver measures 17.7 cm. Liver is echogenic consistent with liver parenchymal disease. Gallbladder has been removed. Common duct measures 7 mm. Both kidneys are seen. Right kidney measures 11.8 x 5.6 x 5.2 cm. Left kidney measures 10.7 x 5 x 4.7 cm. There are bilateral mid pole renal cyst with right measuring 13 mm and left measuring 11 mm. No hydronephrosis is seen of the both kidneys. The spleen is grossly unremarkable. IMPRESSION: 1. Post cholecystectomy. No ductal dilatation is seen. 2. No hydronephrosis is seen. Bilateral renal cysts.
== END | disposition home or self-care (01) ==
LOC: RAH 07:56
PROVIDERS: ATTEND Nurse Practitioner Family
DX: N28.1 Cyst of kidney, acquired (principal); R10.9 Unspecified abdominal pain; Z90.49 Acquired absence of other specified parts of digestive tract
CPT/HCPCS: 76700

== ENCOUNTER → 2025-05-31 | Outpatient (CLI) | payer OTHER ==
--- NOTE | 2025-06-01 14:44 | HMCIMG ---
EXAM: CR left Hip, 3 View. CLINICAL HISTORY: PAIN IN LEFT HIP COMPARISON: None provided. FINDINGS: BONES: No acute fracture or aggressive appearing osseous lesion. JOINTS: No dislocation. The joint spaces are normal. SOFT TISSUES: The soft tissues are unremarkable. IMPRESSION: No acute osseous abnormality. /Niland
== END | disposition home or self-care (01) ==
LOC: RAH 09:26
PROVIDERS: ATTEND Nurse Practitioner Family
DX: M25.552 Pain in left hip (principal)
CPT/HCPCS: 73502